=== PATIENT | female | born 1945 | race Caucasian/White ===

== ENCOUNTER → 2024-08-03 06:44 | Outpatient (REF) | payer MEDICARE, OTHER, SELFPAY | LOC: EMG 06:44 | PROVIDERS: ATTENDING PHYSICIAN Physical Medicine & Rehabilitation; FAMILY PHYSICIAN Family Medicine | DX: R20.0 Anesthesia of skin (principal); R20.2 Paresthesia of skin; G56.03 Carpal tunnel syndrome, bilateral upper limbs | CPT/HCPCS: 95886; 95911 ==